=== PATIENT | female | born 1965 | race Caucasian/White ===

== ENCOUNTER 2019-06-12 09:53 | Observation (INO) ==
[2019-06-12] MEDS ORDERED: HYDROcodone-APAP 10 MG-325 MG TABLET PO PRN (10:06)
[2019-06-12] MEDS ORDERED: CALCIUM CARBONATE 500 MG (TUMS) CHEWABLE TABLET PO PRN ×2 (10:06→14:30)
[2019-06-12] MEDS ORDERED: diphenhydrAMINE 25 MG CAPSULE PO PRN ×3 (10:06→14:30)
[2019-06-12] MEDS ORDERED: Ondansetron ODT Tab 8 MG TAB PO PRN ×3 (10:06→14:30)
[2019-06-12] MEDS ORDERED: BISACODYL 5 MG TABLET PO PRN ×2 (10:06→14:30)
[2019-06-12] MEDS ORDERED: ACETAMINOPHEN 325 MG TABLET PO PRN ×2 (10:06→14:30)
[2019-06-12] MEDS ORDERED: ONDANSETRON 4 MG/2 ML VIAL IVP PRN ×2 (10:06→14:30)
[2019-06-12] MEDS ORDERED: BISACODYL 10 MG SUPPOSITORY RECTAL PRN ×2 (10:06→14:30)
[2019-06-12] MEDS ORDERED: Prochlorperazine Tab 10 MG TAB PO PRN ×3 (10:06→14:30)
[2019-06-12] MEDS ORDERED: MAG HYDROX/AL HYDROX/SIMETH 30 ML SUSP PO PRN ×2 (10:06→14:30)
[2019-06-12] MEDS ORDERED: Lactated Ringers 1,000 ML PRIMARY IV SCH ×3 (10:15→14:30)
[2019-06-12] MEDS ORDERED: Influenza 19-20 Vaccine (6mo+) 60 MCG/0.5 ML SYRINGE IM ONE (10:17)
[2019-06-12] MEDS ORDERED: fentaNYL Inj 100 MCG/2 ML VIAL ONE ×2 (10:45→18:19)
[2019-06-12] MEDS: fentaNYL Inj 100 MCG/2 ML VIAL IVP PRN ×2 (10:45→11:55)
[2019-06-12] MEDS ORDERED: Lactated Ringers 1,000 ML PRIMARY IV ONE (10:45)
[2019-06-12] MEDS ORDERED: DIAZEPAM 5 MG TABLET PO PRN (12:03)
[2019-06-12] MEDS: fentaNYL Inj 250 MCG/5 ML VIAL IVP PRN ×3 (14:09→14:59)
[2019-06-12] MEDS ORDERED: fentaNYL Inj 250 MCG/5 ML VIAL ONE (14:10)
[2019-06-12] MEDS ORDERED: LIDOCAINE HCL 2 % 10 ML JELLY URO-JECT TOPICAL PRN (14:30)
[2019-06-12] MEDS ORDERED: fentaNYL Inj 100 MCG/2 ML VIAL IVP PRN (14:30)
[2019-06-12] MEDS ORDERED: KETOROLAC 15 MG/1 ML VIAL IVP PRN (14:30)
[2019-06-12] MEDS ORDERED: BUPivacaine 0.5%/Epi Inj 50 ML VIAL ONE (14:46)
[2019-06-12] MEDS ORDERED: MIDAZOLAM 5 MG/1 ML ONE (14:47)
[2019-06-12] MEDS ORDERED: ceFAZolin Inj 2gm (Premix) 2 GM/50 ML BAG IV ONE ×2 (14:52→15:57)
[2019-06-12] MEDS ORDERED: PROPOFOL 10 MG/1 ML (200 MG/20 ML) VIAL IV ONE ×2 (15:08→18:54)
[2019-06-12] MEDS ORDERED: SUCCINYLCHOLINE CHLORIDE 20 MG/1 ML - 10 ML ONE (15:08)
[2019-06-12] MEDS ORDERED: ROCURONIUM 10 MG/1 ML - 5 ML VIAL IVP ONE ×2 (15:09→17:25)
[2019-06-12] MEDS ORDERED: KETAMINE 100 MG/1 ML - 5 ML ONE (16:08)
[2019-06-12] MEDS ORDERED: BUPivacaine Liposome/PF (Exparel) Inj 20ml vial INFIL ONE (17:27)
[2019-06-12] MEDS ORDERED: Sodium Chloride 0.9% vial 10 ML ONE ×2 (17:28→17:31)
[2019-06-12] MEDS ORDERED: BACITRACIN 50,000 UNIT VIAL IRRIG ONE (17:28)
[2019-06-12] MEDS ORDERED: SUGAMMADEX SODIUM 200 MG/2 ML VIAL IV ONE (18:40)
[2019-06-12] MEDS ORDERED: TRANEXAMIC ACID 1,000 MG / 10 ML VIAL ONE (18:42)
[2019-06-12] MEDS: DIAZEPAM 5 MG TABLET PO PRN (20:34)
[2019-06-13] MEDS: DIAZEPAM 5 MG TABLET PO PRN (02:37)
[2019-06-13] MEDS: HYDROcodone-APAP 10 MG-325 MG TABLET PO PRN ×3 (03:43→13:31)
[2019-06-13] MEDS ORDERED: ASPIRIN 325 MG EC TABLET PO SCH (09:00)
[2019-06-13 13:10] VITALS: TEMP 98.2
[2019-06-13 13:25] VITALS: BP 115/74; RESP 20; O2SAT 94
[2019-06-13] MEDS ORDERED: Influenza 19-20 Vaccine (6mo+) 60 MCG/0.5 ML SYRINGE IM ONE (15:40)
== END 2019-06-13 16:19 | disposition home or self-care (01) ==
LOC: MED/SURG → OPS 13:51 → MED/SURG 14:16
PROVIDERS: ADMIT Orthopaedic Surgery; ATTEND Orthopaedic Surgery